=== PATIENT | male | born 1985 | race Caucasian/White ===

== ENCOUNTER 2017-06-14 20:28 | Emergency (ER) | payer OTHER ==
[2017-06-14] MEDS ORDERED: Tetan/Diph/Pertus SYR(Tdap)* 0.5 ML SYR(BOOSTRIX) use SYR IM ONE (22:05)
[2017-06-14 22:39] VITALS: BP 124/81
--- NOTE | 2017-06-14 22:41 | ED ---
Laceration/Wound HPI - HPI Summary HPI Summary: Patient presents to the ED with a chief complaint of a right index finger laceration measuring approximately 1.5 cm. Bleeding is controlled on arrival. Mechanism of injury was a bread knife. Unknown last tetanus. Mild amount of blood loss prior to arrival. He denies any other injuries and is stable. Denies dizziness or headache. He does not take any medications including blood thinners. The wound is clean with no foreign bodies. - History of Current Complaint Stated Complaint: LEFT FINGER INJURY Time Seen by Provider: 06/14/17 20:43 Hx Obtained From: Patient Mechanism of Injury: Sharp/Blunt Trauma Onset/Duration: Sudden Onset Aggravating: Movement Alleviating: Compression Timing: Constant Onset Severity: Mild Current Severity: Mild Pain Intensity: 3 Pain Scale Used: 0-10 Numeric Related Hx: Dominant Hand (Right) - Allergy/Home Medications Allergies/Adverse Reactions: Allergies Allergy/AdvReac Type Severity Reaction Status Date / Time fentanyl Allergy Difficulty Verified 06/14/17 20:31 Breathing/Wheezing PMH/Surg Hx/FS Hx/Imm Hx Previously Healthy: Yes Endocrine/Hematology History: Denies: Hx Diabetes Cardiovascular History: Denies: Hx Hypertension, Hx Pacemaker/ICD Respiratory History: Denies: Hx Asthma History: Denies: Hx Renal Disease Sensory History: Denies: Hx Hearing Aid Psychiatric History: Denies: Hx Panic Disorder - Surgical History Surgery Procedure, Year, and Place: ACL LEFT KNEE 2003 - Immunization History Date of Tetanus Vaccine: unknown Hx Pertussis Vaccination: No Immunizations Up to Date: No Infectious Disease History: No Infectious Disease History: Denies: Traveled Outside the [place] in Last 30 Days - Social History Occupation: Employed Full-time Lives: With Family Alcohol Use: Rare Hx Substance Use: No Substance Use Type: Reports: None Hx Tobacco Use: No Smoking Status (MU): Never Smoked Tobacco Review of Systems Constitutional: Negative Negative: Fever, Chills, Fatigue Eyes: Negative Cardiovascular: Negative Genitourinary: Negative Positive: no symptoms reported, see HPI Musculoskeletal: Negative Positive: Other - 1.5 cm laceration Neurological: Negative All Other Systems Reviewed And Are Negative: Yes Physical Exam Triage Information Reviewed: Yes Vital Signs On Initial Exam: Initial Vitals Temp Pulse Resp BP Pulse Ox 98.4 F 59 16 127/70 100 06/14/17 20:31 06/14/17 20:31 06/14/17 20:31 06/14/17 20:31 06/14/17 20:31 Vital Signs Reviewed: Yes Appearance: Positive: Well-Appearing, Well-Nourished Skin: Positive: Warm, Skin Color Reflects Adequate Perfusion Head/Face: Positive: Normal Head/Face Inspection Eyes: Positive: EOMI, DIANA, Conjunctiva Clear Neck: Positive: Supple, No Lymphadenopathy Respiratory/Lung Sounds: Positive: Clear to Auscultation, Breath Sounds Present Cardiovascular: Positive: RRR, Pulses are Symmetrical in both Upper and Lower Extremities Musculoskeletal: Positive: Normal, Strength/ROM Intact Neurological: Positive: Speech Normal Psychiatric: Positive: Normal, Affect/Mood Appropriate Procedures - Laceration/Wound Repair 1 Location: upper extremity Description: Linear Length, Depth and Shape: 1.5 cm length Betadine Prep?: No Irrigated w/ Saline (ccs): 20 Laceration/Wound Explored: clean Closure: Skin Adhesive Layer Closure?: No Sterile Dressing Applied?: No Diagnostics - Vital Signs Vital Signs Temp Pulse Resp BP Pulse Ox 06/14/17 20:31 98.4 F 59 16 127/70 100 - Laboratory Lab Statement: Any lab studies that have been ordered have been reviewed, and results considered in the medical decision making process. Laceration Repair Course/Dx - Course Course Of Treatment: During the course of treatment, the patient is evaluated for right index finger laceration measuring 1.5 cm which is deep. Leading is controlled on arrival and the area has coagulated. Skin margins are appropriated and together and not requiring sutures. I have advised the use of adhesive for this wound. Patient agrees and is okay with this plan. 2 layers of adhesive applied. Tube gauze applied. Small Coban dressing for pressure which he will take off in a few hours. Tetanus updated. - Differential Dx Differental Diagnoses: Foreign Body, Laceration - Clinical Impression Provider Diagnoses: Laceration Discharge - Discharge Plan Condition: Stable Disposition: HOME Patient Education Materials: Skin Adhesive Care (ED) Referrals: [facility] - Jayce CARBALLO [Primary Care Provider] - Additional Instructions: Keep the area dry and bandaged for 2-3 days Change this bandage after 24 hours
== END 2017-06-14 22:35 | disposition home or self-care (01) ==
LOC: ED 20:28
DX: S61.210A Laceration without foreign body of right index finger without damage to nail, initial encounter (principal); W26.0XXA Contact with knife, initial encounter; Y92.9 Unspecified place or not applicable
CPT/HCPCS: 12001; 90471; 90715; 96372; 99282